=== PATIENT | male | born 1945 ===

== ENCOUNTER 2024-11-10 05:46 | Day surgery (SDC) | payer OTHER ==
[2024-11-04 09:03] VITALS: BP 152/79
[2024-11-04 09:17] LABS: BASO % 0.2 % (0.1-1.2); EOS # 0.24 (0.04-0.54); EOS % 4.8 % (0.7-7.0); LYMPH # 1.71 (1.18-3.74); LYMPH % 34.5 % (19.3-53.1); MEAN PLATELET VOLUME 10.40 fl (9.4-12.4); MONO # 0.52 (0.24-0.82); MONO % 10.5 % (4.7-12.5); NEUT # 2.46 (1.56-6.13); NEUT % 49.8 % (34.0-71.1); RED CELL DISTRIBUTION WIDTH 13.0 % (11.6-14.4)
[2024-11-04 09:22] LABS: URINE APPEARANCE Clear; URINE BILIRRUBIN Negative (NEGATIVE); URINE BLOOD Negative; URINE COLOR Dark Yellow; URINE GLUCOSE Negative (NEGATIVE); URINE KETONE Negative (NEGATIVE); URINE LEUKOCYTE Negative; URINE NITRATE Negative; URINE PROTEIN Negative (NEGATIVE); URINE UROBILINOGEN 0.2 E.U./dl
[2024-11-04 09:26] LABS: URINE WBC 3.6 uL (0.0-23.2)
[2024-11-04 09:31] LABS: URINE BACTERIA 3.5 uL (0.0-1933); URINE CAST 0.00 uL (0.0-1.40); URINE EPITHELIAL CELLS 0.4 uL (0.0-38.8); URINE RBC 1.6 uL (0.0-20.8)
[2024-11-04 09:39] LABS: INR 1.05
[2024-11-04 10:05] LABS: ALT/SGPT 30.0 U/L (12-78); AST/SGOT 16.0 U/L (15-37); BILIRUBIN TOTAL 1.34 mg/dL (0.3-1.2); BILIRUBIN,CONJUGATED 0.26 mg/dL (0.0-0.2); BUN CREA RATIO 24.0 (7.0-25.0); CREATININE SERUM 0.87 mg/dL (0.70-1.30); GFR 85.32; GLOBULINA 2.8 G/DL (2.4-3.5); GLUCOSE FASTING 97.0 mg/dL (65-100); OSMOLALITY SERUM 292.0 MOSM/KG (275-295); PROSTATIC SPECIFIC ANTIGEN 1.23 NG/ML (0.010-4.00)
[~2024-11-10] VITALS: Ht 180.3 cm; Wt 89.8 kg
[~2024-11-10 05:46] MED LIST: LOSARTAN-HCTZ1 EAC2 PO; NEXIUM 24HR20 M1; SYNTHROID175 MCG PO; TAMS0.4C PO
[2024-11-10] MEDS ORDERED: CEFAZOLIN SODIUM 1,000 MG VIAL ONE (07:27)
[2024-11-10] MEDS ORDERED: BUPIVACAINE HCL/MPF 0.5% 30ML VIAL ONE (07:27)
[2024-11-10] MEDS ORDERED: PERCOCET 5-3251 EACH PO (09:33)
[2024-11-10] MEDS ORDERED: CITRATE OF MAG296 ML PO (09:34)
[2024-11-10] MEDS ORDERED: NEURONTIN600 M1 PO (09:34)
[2024-11-10] MEDS ORDERED: BACTRIM DS TAB1 EACH PO (12:31)
[2024-11-10 16:30] VITALS: BP 140/56; O2SAT 100
== END 2024-11-10 13:45 | disposition home or self-care (01) ==
LOC: CIR.AMB 05:46
PROVIDERS: ATTEND Surgery
DX: K80.10 Calculus of gallbladder with chronic cholecystitis without obstruction (principal); K42.0 Umbilical hernia with obstruction, without gangrene

== ENCOUNTER 2024-11-20 15:31 | Inpatient (IN) | payer OTHER ==
[~2024-11-20] VITALS: Ht 152.4 cm; Wt 88.9 kg
[~2024-11-20 15:31] MED LIST changes: +BACTRIM DS TAB1 EACH PO; +CITRATE OF MAG296 ML PO; +NEURONTIN600 M1 PO; +PERCOCET 5-3251 EACH PO
[2024-11-20] MEDS ORDERED: SODIUM CHLORIDE IV STA (17:16)
[2024-11-20] MEDS ORDERED: FAMOtidine 10 MG/ML (4ML VIAL) IV PUSH STA (17:17)
[2024-11-20] MEDS ORDERED: ONDANSETRON HCL 2 MG/ML VIAL IV STA (17:17)
[2024-11-20 17:42] LABS: BASO % 0.1 % (0.1-1.2); EOS # 0.02 (0.04-0.54); EOS % 0.2 % (0.7-7.0); LYMPH # 0.67 (1.18-3.74); LYMPH % 5.7 % (19.3-53.1); MEAN PLATELET VOLUME 9.60 fl (9.4-12.4); MONO # 0.82 (0.24-0.82); MONO % 6.9 % (4.7-12.5); NEUT # 10.22 (1.56-6.13); NEUT % 86.5 % (34.0-71.1); RED CELL DISTRIBUTION WIDTH 12.5 % (11.6-14.4)
[2024-11-20 18:11] LABS: URINE APPEARANCE Cloudy; URINE BILIRRUBIN Small (NEGATIVE); URINE BLOOD Small; URINE COLOR Dark Yellow; URINE GLUCOSE Negative (NEGATIVE); URINE KETONE 15 (NEGATIVE); URINE LEUKOCYTE Large; URINE NITRATE Positive; URINE PROTEIN 30 (NEGATIVE); URINE UROBILINOGEN 1.0 E.U./dl
[2024-11-20 18:15] LABS: URINE BACTERIA 48.0 uL (0.0-1933); URINE RBC 47.5 uL (0.0-20.8); URINE WBC 1547.7 uL (0.0-23.2)
[2024-11-20 18:26] LABS: COVID-19 AG NEGATIVE (NEGATIVE)
[2024-11-20 19:37] LABS: ALT/SGPT 29.0 U/L (12-78); AST/SGOT 17.0 U/L (15-37); BILIRUBIN TOTAL 0.73 mg/dL (0.3-1.2); BUN CREA RATIO 17.0 (7.0-25.0); CREATININE SERUM 1.24 mg/dL (0.70-1.30); GFR 56.68; GLOBULINA 3.0 G/DL (2.4-3.5); GLUCOSE FASTING 117.0 mg/dL (65-100); OSMOLALITY SERUM 285.0 MOSM/KG (275-295)
[2024-11-20 19:40] LABS: PROSTATIC SPECIFIC ANTIGEN 18.5 NG/ML (0.010-4.00)
[2024-11-20 19:50] LABS: TYPE CELLS SQUAMOUS; URINE CAST 0.00 uL (0.0-1.40); URINE EPITHELIAL CELLS 0.9 uL (0.0-38.8)
[2024-11-20] MEDS ORDERED: CIPROFLOXACIN IN 5 % DEXTROSE 200 ML IV SCH (21:47)
[2024-11-20] MEDS ORDERED: TAMSULOSIN HCL 0.4 MG CAP PO SCH (21:47)
[2024-11-20] MEDS ORDERED: ONDANSETRON HCL 4 MG in 0.9 % SODIUM CHLORIDE 50 ML IV PRN (22:30)
[2024-11-20] MEDS ORDERED: 0.9 % SODIUM CHLORIDE 1,000 ML IV SCH (22:30)
[2024-11-20] MEDS ORDERED: ACETAMINOPHEN 500 MG GEL..CAP PO PRN (22:30)
[2024-11-20] MEDS ORDERED: FAMOTIDINE/PF 20 MG in 0.9 % SODIUM CHLORIDE 8 ML IV PUSH SCH (22:30)
[2024-11-20] MEDS ORDERED: KETOROLAC TROMETHAMINE 30 MG VIAL IU ONE (23:00)
[2024-11-20] MEDS ORDERED: DEXAMETHASONE SODIUM PHOSPHATE 4 MG/ML VIAL IV ONE (23:00)
[2024-11-21 01:25] LABS: INR 1.11
[2024-11-21 02:36] VITALS: BP 127/62; O2SAT 95
[2024-11-21] MEDS ORDERED: LEVOTHYROXINE SODIUM 175 MCG TABLET PO SCH (06:00)
[2024-11-21] MEDS ORDERED: LOSARTAN/HYDROCHLOROTHIAZIDE 1 TAB TABLET PO SCH (09:00)
[2024-11-21] MEDS ORDERED: ENOXAPARIN SODIUM 40 MG/0.4 ML SYRINGE SUBCUTANEO SCH (09:00)
[2024-11-21 10:07] VITALS: BP 133/70; O2SAT 97
[2024-11-21] MEDS ORDERED: PIPERACILLIN/TAZOBACTAM SODIUM 3.375 GM VIAL IV STA (11:43)
[2024-11-21 13:19] VITALS: BP 134/71; O2SAT 98
[2024-11-21] MEDS ORDERED: LACTOBACILLUS ACIDOPHILUS 1 CAP CAP PO SCH (17:00)
[2024-11-21 17:50] VITALS: BP 142/68; O2SAT 95
[2024-11-21] MEDS ORDERED: PIPERACILLIN/TAZOBACTAM SODIUM 3.375 GM VIAL IV SCH (18:00)
[2024-11-22 03:11] VITALS: BP 111/67; O2SAT 95
[2024-11-22 06:44] LABS: BASO % 0.1 % (0.1-1.2); EOS # 0.18 (0.04-0.54); EOS % 1.1 % (0.7-7.0); LYMPH # 0.87 (1.18-3.74); LYMPH % 5.2 % (19.3-53.1); MEAN PLATELET VOLUME 11.00 fl (9.4-12.4); MONO # 1.09 (0.24-0.82); MONO % 6.5 % (4.7-12.5); NEUT # 14.36 (1.56-6.13); NEUT % 86.3 % (34.0-71.1); RED CELL DISTRIBUTION WIDTH 12.7 % (11.6-14.4)
[2024-11-22] MEDS ORDERED: MEROPENEM 500 MG/VIAL VIAL IV STA (08:41)
[2024-11-22 08:58] LABS: BUN CREA RATIO 17.0 (7.0-25.0); CREATININE SERUM 1.18 mg/dL (0.70-1.30); GFR 60.02; GLUCOSE FASTING 107.0 mg/dL (65-100); OSMOLALITY SERUM 284.0 MOSM/KG (275-295)
[2024-11-22 09:00] LABS: ALT/SGPT 25.0 U/L (12-78); AST/SGOT 20.0 U/L (15-37); BILIRUBIN TOTAL 1.0 mg/dL (0.3-1.2); GLOBULINA 2.8 G/DL (2.4-3.5)
[2024-11-22 09:03] LABS: PROSTATIC SPECIFIC ANTIGEN 52.6 NG/ML (0.010-4.00)
[2024-11-22] MEDS ORDERED: MEROPENEM 500 MG/VIAL VIAL IV SCH (12:00)
[2024-11-22 18:09] VITALS: BP 122/75; O2SAT 97
[2024-11-22] MEDS ORDERED: MORPHINE SULFATE 4 MG/ML CARTRIDGE IV PRN (21:00)
[2024-11-22] MEDS ORDERED: ACETAMINOPHEN WITH CODEINE 1 UDTAB TABLET PO PRN (22:00)
[2024-11-23 01:11] VITALS: BP 127/68; O2SAT 95
[2024-11-23 08:41] VITALS: BP 122/65; O2SAT 98
[2024-11-23] MEDS ORDERED: OXYBUTYNIN CHLORIDE 5 MG TABLET PO SCH (17:00)
[2024-11-23 18:21] VITALS: BP 127/66
[2024-11-23] MEDS ORDERED: FAMOTIDINE/PF 20 MG in 0.9 % SODIUM CHLORIDE 8 ML IV PUSH SCH (21:00)
[2024-11-24 00:32] VITALS: BP 120/64; O2SAT 96
[2024-11-24 07:22] LABS: BASO % 0.2 % (0.1-1.2); EOS # 0.38 (0.04-0.54); EOS % 7.5 % (0.7-7.0); LYMPH # 1.10 (1.18-3.74); LYMPH % 21.8 % (19.3-53.1); MEAN PLATELET VOLUME 11.00 fl (9.4-12.4); MONO # 0.53 (0.24-0.82); MONO % 10.5 % (4.7-12.5); NEUT # 3.00 (1.56-6.13); NEUT % 59.4 % (34.0-71.1); RED CELL DISTRIBUTION WIDTH 12.7 % (11.6-14.4)
[2024-11-24 08:18] VITALS: BP 158/79; O2SAT 97
[2024-11-24 18:54] VITALS: BP 129/69
[2024-11-25 00:55] VITALS: BP 118/67
[2024-11-25 08:46] VITALS: BP 130/75; O2SAT 98
[2024-11-25 13:28] LABS: URINE APPEARANCE Cloudy; URINE BILIRRUBIN Negative (NEGATIVE); URINE COLOR Yellow; URINE GLUCOSE Negative (NEGATIVE); URINE KETONE Negative (NEGATIVE); URINE LEUKOCYTE Small; URINE NITRATE Negative; URINE PROTEIN 30 (NEGATIVE); URINE UROBILINOGEN 1.0 E.U./dl
[2024-11-25 13:32] LABS: URINE BACTERIA 73.1 uL (0.0-1933); URINE EPITHELIAL CELLS 4.1 uL (0.0-38.8); URINE RBC 47.6 uL (0.0-20.8); URINE WBC 20.4 uL (0.0-23.2)
[2024-11-25 13:54] LABS: URINE BLOOD TRACES; URINE CAST 0.29 uL (0.0-1.40)
[2024-11-25 17:45] VITALS: BP 133/78; O2SAT 99
[2024-11-26 01:19] VITALS: BP 146/73; O2SAT 96
[2024-11-26 06:43] LABS: BASO % 0.3 % (0.1-1.2); EOS # 0.52 (0.04-0.54); EOS % 9.0 % (0.7-7.0); LYMPH # 1.68 (1.18-3.74); LYMPH % 29.1 % (19.3-53.1); MEAN PLATELET VOLUME 10.70 fl (9.4-12.4); MONO # 0.70 (0.24-0.82); NEUT # 2.78 (1.56-6.13); NEUT % 48.1 % (34.0-71.1); RED CELL DISTRIBUTION WIDTH 12.4 % (11.6-14.4)
[2024-11-26 07:31] LABS: BUN CREA RATIO 23.0 (7.0-25.0); CREATININE SERUM 0.74 mg/dL (0.70-1.30); GFR 102.83; GLUCOSE FASTING 109.0 mg/dL (65-100); OSMOLALITY SERUM 287.0 MOSM/KG (275-295)
[2024-11-26 07:32] LABS: PROSTATIC SPECIFIC ANTIGEN 21.6 NG/ML (0.010-4.00)
[2024-11-26 07:55] LABS: MONO % 12.1 % (4.7-12.5)
[2024-11-26 09:14] VITALS: BP 150/70; O2SAT 99
[2024-11-26 17:25] VITALS: BP 144/77; O2SAT 98
[2024-11-27 02:12] VITALS: BP 148/76
[2024-11-27 08:25] VITALS: BP 141/78
[2024-11-27 18:07] VITALS: BP 141/78
[2024-11-27 18:15] VITALS: BP 153/68; O2SAT 100
[2024-11-28 02:10] VITALS: BP 135/76; O2SAT 96
[2024-11-28 08:26] VITALS: BP 134/80; O2SAT 98
[2024-11-28 17:00] VITALS: BP 145/75; O2SAT 97
[2024-11-28] MEDS ORDERED: FINASTERIDE 5 MG TABLET PO SCH (21:00)
[2024-11-29 02:21] VITALS: BP 160/78; O2SAT 98
[2024-11-29 09:59] VITALS: BP 134/80; O2SAT 97
== END 2024-11-29 14:53 | disposition home or self-care (01) | DRG 690 ==
LOC: ER 15:31 → MEDJ 22:59
PROVIDERS: General Practice; Internal Medicine; Internal Medicine Infectious Disease; ADMIT Internal Medicine; ATTEND Internal Medicine
PROC: 8E0ZXY6 Isolation (ICD-10-PCS; principal; 2024-11-20)
PROC: BW21ZZZ Computerized Tomography (CT Scan) of Abdomen and Pelvis (ICD-10-PCS; 2024-11-20)
PROC: BT43ZZZ Ultrasonography of Bilateral Kidneys (ICD-10-PCS; 2024-11-22)
PROC: 02HV33Z Insertion of Infusion Device into Superior Vena Cava, Percutaneous Approach (ICD-10-PCS; 2024-11-26)
PROC: B548ZZA Ultrasonography of Superior Vena Cava, Guidance (ICD-10-PCS; 2024-11-26)
DX: N39.0 Urinary tract infection, site not specified (principal); N41.0 Acute prostatitis; N17.9 Acute kidney failure, unspecified; N40.1 Benign prostatic hyperplasia with lower urinary tract symptoms; R33.8 Other retention of urine; K76.89 Other specified diseases of liver; I12.9 Hypertensive chronic kidney disease with stage 1 through stage 4 chronic kidney disease, or unspecified chronic kidney disease; N18.9 Chronic kidney disease, unspecified; E03.9 Hypothyroidism, unspecified; B96.89 Other specified bacterial agents as the cause of diseases classified elsewhere; Z90.49 Acquired absence of other specified parts of digestive tract